=== PATIENT | female | born 1995 | race Caucasian/White ===

== ENCOUNTER 2018-08-10 11:36 | Emergency (ER) | payer MEDICAID, OTHER ==
[~2018-08-10] VITALS: Wt 58.0 kg
[2018-08-10 11:39] VITALS: BP 139/78; PULSE 89; RESP 18
--- NOTE | 2018-08-10 16:26 | ERD ---
ER Documentation Chief Complaint Chief Complaint 7 WEEKS WITH SPOTTING HPI 22-year-old Serbian-speaking G2, P1 female at approximately 7 weeks gestation presents to the ED complaining of vaginal bleeding and suprapubic cramping x2 days. She denies any urinary symptoms. Denies any fevers or chills. Denies any nausea or vomiting. Denies any back pain or flank pain. She states the vaginal bleeding has since improved. Patient states her last menstrual cycle was on June 19, 2018. ROS All systems reviewed and are negative except as per history of present illness. Allergies Allergies: Coded Allergies: No Known Allergy (Unverified , 08/10/18) PMhx/Soc Hx Alcohol Use: No Hx Substance Use: No Hx Tobacco Use: No Physical Exam Vitals Vital Signs Date Temp Pulse Resp B/P (MAP) Pulse Ox O2 O2 Flow FiO2 Time Delivery Rate 08/10/18 98.2 89 18 139/78 99 11:39 (98) Physical Exam Const: No acute distress Head: Atraumatic Eyes: Normal Conjunctiva ENT: Normal External Ears, Nose and Mouth. Neck: Full range of motion. No meningismus. Resp: Clear to auscultation bilaterally Cardio: Regular rate and rhythm, no murmurs Abd: Soft, + mild suprapubic tenderness palpation, non distended. Normal bowel sounds Skin: No petechiae or rashes Back: No midline or flank tenderness Ext: No cyanosis, or edema Neur: Awake and alert Psych: Normal Mood and Affect Result Diagram: 08/10/18 1337 Results 24 hrs Laboratory Tests Test 08/10/18 13:37 White Blood Count 8.9 10^3/ul Red Blood Count 4.41 10^6/ul Hemoglobin 13.5 g/dl Hematocrit 39.9 % Mean Corpuscular Volume 90.5 fl Mean Corpuscular Hemoglobin 30.6 pg Mean Corpuscular Hemoglobin Concent 33.8 g/dl Red Cell Distribution Width 12.1 % Platelet Count 239 10^3/UL Mean Platelet Volume 10.4 fl Immature Granulocytes % 0.300 % Neutrophils % 75.4 % Lymphocytes % 14.8 % Monocytes % 8.3 % Eosinophils % 0.6 % Basophils % 0.6 % Nucleated Red Blood Cells % 0.0 /100WBC Immature Granulocytes # 0.030 10^3/ul Neutrophils # 6.7 10^3/ul Lymphocytes # 1.3 10^3/ul Monocytes # 0.7 10^3/ul Eosinophils # 0.1 10^3/ul Basophils # 0.1 10^3/ul Nucleated Red Blood Cells # 0.0 10^3/ul Urine Color STEPHANIE Urine Clarity CLEAR Urine pH 8.0 Urine Specific Dow 1.006 Urine Ketones NEGATIVE mg/dL Urine Nitrite NEGATIVE mg/dL Urine Bilirubin NEGATIVE mg/dL Urine Urobilinogen NEGATIVE mg/dL Urine Leukocyte Esterase NEGATIVE Svetlana/ul Urine Microscopic RBC 3 /HPF Urine Microscopic WBC 7 /HPF Urine Bacteria FEW /HPF Urine Hemoglobin 3+ mg/dL Urine Glucose NEGATIVE mg/dL Urine Total Protein 2+ mg/dl Beta HCG, Quantitative 2184.9 mIU/ml Procedures/MDM LABS CBC: no e/o of systemic infection or severe anemia Urine: no e/o acute infection or hematuria beta hc Rh: positive DIAGNOSTIC IMAGING: PROCEDURE: US Pelvis Transabdominal. CLINICAL INDICATION: with vaginal bleeding. COMPARISON: None. FINDINGS: Uterus: Size: 9.8 x 4.5 x 5.9 cm. Masses: None. Nabothian cysts: None.> Endometrium: Thickness: 3.0 mm. Lesions: None. Right ovary: Size: 2.9 x 2.2 x 2.4 cm. Lesions: 1.5 cm simple cyst. No increased vascularity surrounding this cyst. Vascularity: Normal. Left ovary: Size: 3.3 x 3.0 x 1.8 cm. Lesions: None. Vascularity: Normal. Adnexae: Masses: None. Fluid: None. IMPRESSION: No visualized intrauterine or ectopic . In the setting of a positive test, the differential diagnosis includes early , spontaneous and non-visualized ectopic . Correlation with quantitative, and if needed serial, beta HCG results is recommended. 1.5 cm simple cyst on the right ovary. This could reflect corpus luteum. MEDICAL DECISION MAKIN-year-old G2, P1 female presents with vaginal bleeding in first trimester. Labs without any signs of infection or significant anemia. Her serum HCG was 2184. U/S did not visualize an intrauterine , her workup is most consistent with a spontaneous although I cannot rule out ectopic . I discussed this with the patient at bedside. She was given a copy of her results and told to return here in 48 hours for repeat HCG. Strict return precautions given. She as febrile here. Vital signs are normal. I have low suspicion for sepsis or septic shock. PRESCRIPTIONS: None SPECIALIST FOLLOW UP RECOMMENDED: None Patient has been advised to follow up with primary care in 1-2 days. Departure Diagnosis: Primary Impression: Spontaneous Condition: Stable Patient Instructions: Miscarriage Referrals: [facility] Hours: 8:00 am - 5:00 pm Additional Instructions: YOU MUST come back in 2 days for recheck of your beta hCG levels. He can take Tylenol for any pain. Return here for any fevers, chills, worsening abdominal pain or any other symptoms. KEILA HARDING PA-C Aug 10, 2018 16:25
== END 2018-08-10 16:09 | disposition home or self-care (01) ==
LOC: FTE 11:36
DX: O03.9 Complete or unspecified spontaneous abortion without complication (principal)
CPT/HCPCS: 36415; 76801; 81001; 84702; 85025; 86900; 86901; Z7502

== ENCOUNTER 2018-08-12 08:12 | Emergency (ER) | payer MEDICAID ==
[~2018-08-12] VITALS: Ht 162.6 cm; Wt 52.3 kg
[2018-08-12 08:19] VITALS: Ht 162.6 cm; Wt 52.3 kg
--- NOTE | 2018-08-12 09:30 | ERD ---
ER Documentation Chief Complaint Chief Complaint RECHECK OF HCG. SEEN ON SATURDAY ASKED TO RETURN. DX SPONTANEOUS AB HPI During the patient's encounter translation services were utilized Language: [Portuguese] Source: [in person] 22-year-old female who presents to the emergency room for recheck of hCG. The patient is approximately 6 to 7 weeks gestation and was evaluated for possible miscarriage several days ago. The patient had vaginal bleeding and cramping. The pain is since resolved but only mild bleeding currently. Otherwise the patient has no complaints. She has not followed up with her TREAD TUBER MACHINE OPERATOR. ROS All systems reviewed and are negative except as per history of present illness. Allergies Allergies: Coded Allergies: No Known Allergy (Unverified , 08/10/18) PMhx/Soc Hx Alcohol Use: No Hx Substance Use: No Hx Tobacco Use: No FmHx Family History: No diabetes Physical Exam Vitals Vital Signs Date Temp Pulse Resp B/P (MAP) Pulse Ox O2 O2 Flow FiO2 Time Delivery Rate 08/12/18 96.8 62 17 99/61 (74) 99 08:19 Physical Exam General: Well developed, well nourished, no acute distress Head: Normocephalic, atraumatic. Eyes: EOM intact ENT: Moist mucous membranes Neck: Full ROM Respiratory: No respiratory distress Cardiovascular: Well perfused distally Abdominal: Nondistended : Deferred MSK: No edema, no unilateral swelling, 5/5 strength Neurologic: Alert and oriented, moving all extremities, normal speech, steady gait Skin: No rash Psych: Normal mood Results 24 hrs Laboratory Tests Test 08/12/18 08:58 Beta HCG, Quantitative 332.0 mIU/ml Procedures/MDM EKG, MONITORS, & DIAGNOSTIC IMAGING: Pelvic ultrasound: From 08.10. IMPRESSION: No visualized intrauterine or ectopic . In the setting of a positive test, the differential diagnosis includes early , spontaneous and non-visualized ectopic . Correlation with quantitative, and if needed serial, beta HCG results is recommended. 1.5 cm simple cyst on the right ovary. This could reflect corpus luteum. LAB INTERPRETATION: Serum hC on 08.10 to today of 332 Rh status: AB Positive, no RhoGham needed. MEDICAL DECISION MAKING: The patient is still having some vaginal bleeding but no significant pain. This is likely consistent with normal miscarriage. Low concern for ectopic pregnan cy. Repeat hCG pending. The patient will require further evaluation, laboratory testing and diagnostic imaging to evaluate and rule out acute ectopic . Patient will also require prompt outpatient TREAD TUBER MACHINE OPERATOR follow-up. We discussed this at the bedside. We had an in-depth conversation regarding the diagnosis of threatened miscarriage, the prevalence of this process, the expected management as well as return precautions. ER COURSE: * The patient's hCG has been trending down appropriately. This is likely consistent with completed miscarriage. Patient is to follow-up with TREAD TUBER MACHINE OPERATOR. No indication for repeat ultrasound at this time. I kept the patient and/or family informed of laboratory and diagnostic imaging results throughout the emergency room course. DISPOSITION PLAN: We discussed follow up with the patient's primary care doctor within 24 to 48 hours as needed. We also discussed return to the emergency room for worsening symptoms or worsening condition. Close outpatient TREAD TUBER MACHINE OPERATOR follow-up for repeat h CG value in 2-3 days and ultrasound as needed. Discharge medications: None required Departure Diagnosis: Primary Impression: Spontaneous Condition: Stable EULALIO ARMENTA MD Aug 12, 2018 09:30
[2018-08-12 11:07] VITALS: BP 105/58; PULSE 72; RESP 17
== END 2018-08-12 11:08 | disposition home or self-care (01) ==
LOC: FTE 08:12
DX: O03.9 Complete or unspecified spontaneous abortion without complication (principal)
CPT/HCPCS: 36415; 84702; Z7502; 99283